=== PATIENT | female | born 1950 | race Caucasian/White ===

== ENCOUNTER 2020-01-03 10:17 | Outpatient (REF) | payer MEDICARE, OTHER, SELFPAY ==
--- NOTE | 2020-01-03 10:26 | MM_ITS ---
EXAMINATION: BONE DENSITOMETRY CLINICAL INDICATION: Age-related osteoporosis without current pathological fracture. COMPARISON: Previous BD dated 12/28/2017 and baseline BD dated 10/14/2007. TECHNIQUE: Using a [employer] DXA System (software version: 13.1) manufactured by [employer], dual-energy x-ray absorptiometry was performed of the lumbar spine and left hip. The images are of good technical quality. Summary results are attached. FINDINGS: AP SPINE L1-L3 (excluding L4): The data of L1-L4 has been changed to exclude the L4 vertebral body, because degenerative changes at this level may cause overestimation of lumbar spine density. Current: BMD 0.714 g/cm2, Z-score -2.4, T-score -3.8, osteoporosis, 0.4% decrease from previous, 3.6% decrease from baseline (<5% change is not significant). Prior: BMD 0.717 g/cm2. Baseline: BMD 0.741 g/cm2. LEFT FEMUR, NECK: Current: BMD 0.768 g/cm2, Z-score -0.3, T-score -1.9, osteopenia. Prior: BMD 0.790 g/cm2. Baseline: BMD 0.817 g/cm2. LEFT FEMUR, TOTAL: Current: BMD 0.791 g/cm2, Z-score -0.3, T-score -1.7, osteopenia, 5.0% decrease from previous, 7.2% decrease from baseline (<5% change is not significant). Prior: BMD 0.833 g/cm2. Baseline: BMD 0.852 g/cm2. IDENTIFIED RISK FACTORS: History of adult fracture. Osteoporosis. Current smoker. Secondary osteoporosis (early menopause). HISTORY OF FRACTURE: Wrist. No insufficiency fracture reported. MEDICATIONS: Calcium supplement and/or multivitamin. Vitamin D. MM/XR DEXA axial skeleton IMPRESSION: 1. DIAGNOSIS: Osteoporosis based on the lowest T-score value of -3.8 in the lumbar spine applying World Health Organization criteria. 2. 10-YEAR FRACTURE RISK PREDICTION, FRAX: Major osteoporotic fracture (clinical spine, forearm, hip or shoulder) 19.7%. Hip fracture 6.1%. 3. Treatment Recommendations: NOF guidelines recommend consideration for treatment in postmenopausal women and men age 50 and older presenting with the following: -A hip or vertebral (clinical or morphometric) fracture. -T-score less than or equal to -2.5 at the femoral neck or spine after appropriate evaluation to exclude secondary causes. -Low bone mass at the hip or spine and a 10-year fracture probability by FRAX of greater than or equal to 3% for hip fracture or greater than or equal to 20% for major osteoporotic fracture based on the [place] adapted WHO algorithm. 4. Other Recommendations: All treatment decisions require clinical judgment and consideration of individual patient factors, including patient preferences, comorbidities, previous drug use, risk factors not captured in the FRAX model (e.g. frailty, falls, vitamin D deficiency, increased bone turnover, interval significant decline in bone density) and possible under or overestimation of fracture risk by FRAX. Additional medical evaluation for secondary cause of low bone mineral density may be appropriate. FUTURE SCAN RECOMMENDATION: People with diagnosed cases of osteoporosis or at high risk for fracture should have regular bone mineral density tests. For patients eligible for Medicare, routine testing is allowed once every 2 years. The testing frequency can be increased to one year for patients who have rapidly progressing disease, those who are receiving or discontinuing medical therapy to restore bone mass, or have additional risk factors.
== END 2020-01-03 10:18 | disposition home or self-care (01) ==
LOC: HO.MAMMO 10:17
PROVIDERS: PCP Nurse Practitioner Family; Visit Provider Nurse Practitioner Family
DX: M81.0 Age-related osteoporosis without current pathological fracture (principal)
CPT/HCPCS: 77080

== ENCOUNTER 2020-02-13 09:37 | Outpatient (REF) | payer MEDICARE, OTHER, SELFPAY ==
[2020-02-13 11:23] LABS: Hemoglobin 14.8 g/dl (12.0-16.0); Mean Corpuscular HGB Conc 32.2 g/dl (31.0-35.0); Mean Corpuscular Hemoglobin 31.7 pg (27.0-33.0); Mean Corpuscular Volume 98.5 fL (80-98); Mean Platelet Volume 9.4 fL (9.4-12.3); Platelet Count 338 X10*3/uL (160-400); Red Blood Count 4.67 X10*6/uL (4.20-5.50); Red Cell Distribution Width 12.9 % (11.0-16.0)
[2020-02-13 11:42] LABS: Alanine Aminotransferase < 6 U/L (0-31); Albumin Level 4.2 g/dL (3.5-5.0); Alkaline Phosphatase 74 U/L (39-117); Anion Gap 13 (12-20); Aspartate Amino Transferase 19 U/L (5-31); Bilirubin Total 0.6 mg/dL (0.0-1.0); Blood Urea Nitrogen 14 mg/dL (9-16); Calcium 9.2 mg/dL (8.4-10.2); Carbon Dioxide 27 mmol/L (22-29); Chloride 105 mmol/L (96-108); Cholesterol 217 mg/dL; Estimated Glomerular Filt Rate > 60; Glucose Fasting 78 mg/dL (60-99); HDL Cholesterol 54 mg/dL; LDL Cholesterol Calculated 141 mg/dl; Potassium 4.6 mmol/l (3.3-5.1); Sodium 140 mmol/L (135-145); Total Protein 7.1 g/dL (6.5-8.0); Triglycerides 112 mg/dL
[2020-02-13 11:54] LABS: Vitamin D 25-OH Total 33.2 ng/mL (>30)
[2020-02-14 19:48] LABS: Calcium, 24 Hr Urine 153 mg/24 h; Calcium/Creatinine Ratio 151 mg/g creat (30-275); Creatinine 24Hr Urine 1.01 g/24 h (0.50-2.15)
== END 2020-02-13 09:38 | disposition home or self-care (01) ==
LOC: HO.HMGCLDS 09:37
PROVIDERS: PCP Nurse Practitioner Family; Visit Provider Nurse Practitioner Family
DX: E78.2 Mixed hyperlipidemia (principal); M81.0 Age-related osteoporosis without current pathological fracture; F41.9 Anxiety disorder, unspecified; E03.9 Hypothyroidism, unspecified
CPT/HCPCS: 36415; 80053; 80061; 82306; 82340; 84443; 85027

== ENCOUNTER 2020-02-21 10:27 | Outpatient (REF) | payer MEDICARE, OTHER, SELFPAY ==
--- NOTE | 2020-02-21 10:31 | MM_ITS ---
EXAMINATION: MM SCREENING DIGITAL BREAST TOMOSYNTHESIS, BILATERAL CLINICAL INFORMATION: Screening. Asymptomatic. The lifetime risk of breast cancer based on the Tyrer-Cuzick Model is 2.2%. COMPARISON: Mammography: February 15, 2019 and studies dating back to December 03, 2011 TECHNIQUE: Digital breast tomosynthesis is performed in both the craniocaudal and mediolateral oblique views along with computer-aided detection (CAD). Synthesized 2D images are generated from the tomosynthesis. Left exaggerated craniocaudal view also performed. FINDINGS: The breasts are almost entirely fatty (ACR BI-RADS breast composition Category a). There are no significant masses, abnormal calcifications, or other abnormalities. MM/MM tomosynthesis screening BI IMPRESSION: There are no significant changes from prior study. ASSESSMENT: BI-RADS 1: Negative RECOMMENDATION: Routine annual mammography screening. This patient's information was entered into a reminder system with a target due date for their next mammogram.
== END 2020-02-21 10:28 | disposition home or self-care (01) ==
LOC: HO.MAMMO 10:27
PROVIDERS: PCP Nurse Practitioner Family; Visit Provider Nurse Practitioner Family
DX: Z12.31 Encounter for screening mammogram for malignant neoplasm of breast (principal)
CPT/HCPCS: 77063; 77067

== ENCOUNTER 2021-02-24 10:16 | Outpatient (REF) | payer MEDICARE, OTHER, SELFPAY ==
--- NOTE | ~2021-02-24 | MM_ITS ---
EXAMINATION: MM SCREENING DIGITAL BREAST TOMOSYNTHESIS, BILATERAL CLINICAL INFORMATION: Screening. Asymptomatic. The lifetime risk of breast cancer based on the Tyrer-Cuzick Model is 2%. COMPARISON: Mammography: 02/21/2020, 02/15/2019, 02/10/2018 TECHNIQUE: Digital breast tomosynthesis is performed in both the craniocaudal and mediolateral oblique views along with computer-aided detection (CAD). Synthesized 2D images are generated from the tomosynthesis. FINDINGS: The breasts are almost entirely fatty (ACR BI-RADS breast composition Category a). Background stromal and fibroglandular densities are stable. There is intramammary node again seen posterior upper outer left breast. No developing density or architectural abnormality. No abnormal calcifications. No significant changes. MM/MM tomosynthesis screening BI IMPRESSION: No mammographic evidence of malignancy. ASSESSMENT: BI-RADS 2: Benign RECOMMENDATION: Routine annual mammography screening. This patient's information was entered into a reminder system with a target due date for their next mammogram.
== END 2021-02-24 10:17 | disposition home or self-care (01) ==
LOC: HO.MAMMO 10:16
PROVIDERS: Visit Provider Nurse Practitioner Family
DX: Z12.31 Encounter for screening mammogram for malignant neoplasm of breast (principal)
CPT/HCPCS: 77063; 77067

== ENCOUNTER 2022-03-03 12:41 | Outpatient (REF) | payer MEDICARE, OTHER, SELFPAY ==
--- NOTE | ~2022-03-03 | MM_ITS ---
EXAMINATION: BONE DENSITOMETRY CLINICAL INDICATION: Osteoporosis. COMPARISON: Previous BD dated 01/03/2012 and baseline BD dated 10/14/2007. TECHNIQUE: Using a [employer] DXA System (software version: 13.1) manufactured by [email or web address], dual-energy x-ray absorptiometry was performed of the lumbar spine and left hip. The images are of good technical quality. Summary results are attached. FINDINGS: AP SPINE L1-L3 (excluding L4): The data of L1-L4 has been changed to exclude the L4 vertebral body, because degenerative changes at this level may cause overestimation of lumbar spine density. Current: BMD 0.694 g/cm2, Z-score -2.5, T-score -4.0, osteoporosis, 2.8% increase from previous, 6.3% decrease from baseline (<5% change is not significant). Prior: BMD 0.714 g/cm2. Baseline: BMD 0.741 g/cm2. LEFT FEMUR, NECK: Current: BMD 0.740 g/cm2, Z-score -0.4, T-score -2.1, osteopenia. Prior: BMD 0.768 g/cm2. Baseline: BMD 0.817 g/cm2. LEFT FEMUR, TOTAL: Current: BMD 0.772 g/cm2, Z-score -0.4, T-score -1.9, osteopenia, 2.4% decrease from previous, 9.4% decrease from baseline (<5% change is not significant). Prior: BMD 0.791 g/cm2. Baseline: BMD 0.852 g/cm2. IDENTIFIED RISK FACTORS: Early menopause, height loss, history of fracture (adult), osteoporosis, secondary osteoporosis, tobacco use (current smoker). HISTORY OF FRACTURE: Wrist, elbow. MEDICATIONS: Vitamin D. MM/XR DEXA axial skeleton IMPRESSION: 1. DIAGNOSIS: Osteoporosis based on the lowest T-score value of -4.0 in the lumbar spine applying World Health Organization criteria. 2. 10-YEAR FRACTURE RISK PREDICTION, FRAX: According to the guidelines, FRAX calculation should only be performed on patients in the osteopenia bone density category. Therefore, FRAX was not performed on this patient. 3. Treatment Recommendations: NOF guidelines recommend consideration for treatment in postmenopausal women and men age 50 and older presenting with the following: -A hip or vertebral (clinical or morphometric) fracture. -T-score less than or equal to -2.5 at the femoral neck or spine after appropriate evaluation to exclude secondary causes. -Low bone mass at the hip or spine and a 10-year fracture probability by FRAX of greater than or equal to 3% for hip fracture or greater than or equal to 20% for major osteoporotic fracture based on the [place] adapted WHO algorithm. 4. Other Recommendations: All treatment decisions require clinical judgment and consideration of individual patient factors, including patient preferences, comorbidities, previous drug use, risk factors not captured in the FRAX model (e.g. frailty, falls, vitamin D deficiency, increased bone turnover, interval significant decline in bone density) and possible under or overestimation of fracture risk by FRAX. Additional medical evaluation for secondary cause of low bone mineral density may be appropriate. FUTURE SCAN RECOMMENDATION: People with diagnosed cases of osteoporosis or at high risk for fracture should have regular bone mineral density tests. For patients eligible for Medicare, routine testing is allowed once every 2 years. The testing frequency can be increased to one year for patients who have rapidly progressing disease, those who are receiving or discontinuing medical therapy to restore bone mass, or have additional risk factors.
--- NOTE | ~2022-03-03 | MM_ITS ---
EXAMINATION: MM SCREENING DIGITAL BREAST TOMOSYNTHESIS, BILATERAL CLINICAL INFORMATION: Screening. Asymptomatic. The lifetime risk of breast cancer based on the Tyrer-Cuzick Model is 2%. COMPARISON: Mammography: 02/24/2021, 02/18/2020, 02/15/2019 TECHNIQUE: Digital breast tomosynthesis is performed in both the craniocaudal and mediolateral oblique views along with computer-aided detection (CAD). Synthesized 2D images are generated from the tomosynthesis. FINDINGS: The breasts are almost entirely fatty (ACR BI-RADS breast composition Category a). There are no significant masses, abnormal calcifications, or other abnormalities. Background stromal and fibroglandular densities are similar to prior studies. There is incidental intramammary node again seen posterior upper outer left breast. The skin contours are smooth. No significant changes. MM/MM tomosynthesis screening BI IMPRESSION: No mammographic evidence of malignancy. ASSESSMENT: BI-RADS 2: Benign RECOMMENDATION: Routine annual mammography screening. This patient's information was entered into a reminder system with a target due date for their next mammogram.
== END 2022-03-03 12:42 | disposition home or self-care (01) ==
LOC: HO.MAMMO 12:41
PROVIDERS: PCP Nurse Practitioner Family; Visit Provider Nurse Practitioner Family
DX: Z12.31 Encounter for screening mammogram for malignant neoplasm of breast (principal); Z13.820 Encounter for screening for osteoporosis; Z78.0 Asymptomatic menopausal state; M81.0 Age-related osteoporosis without current pathological fracture
CPT/HCPCS: 77063; 77067; 77080

== ENCOUNTER 2023-03-12 14:54 | Outpatient (REF) | payer MEDICARE, OTHER, SELFPAY | END 2023-03-12 14:55 | disposition home or self-care (01) | LOC: HO.MAMMO 14:54 | PROVIDERS: PCP Nurse Practitioner Family; Visit Provider Nurse Practitioner Family | DX: Z12.31 Encounter for screening mammogram for malignant neoplasm of breast (principal) | CPT/HCPCS: 77063; 77067 ==

== ENCOUNTER → 2023-03-12 15:15 | Outpatient (BNV) | payer MEDICARE, OTHER, SELFPAY | PROVIDERS: PCP Nurse Practitioner Family; Visit Provider Radiology Diagnostic Radiology | DX: Z12.31 Encounter for screening mammogram for malignant neoplasm of breast (principal) | CPT/HCPCS: 77063; 77067 ==

== ENCOUNTER 2024-03-31 14:09 | Outpatient (REF) | payer MEDICARE, OTHER, SELFPAY ==
--- NOTE | ~2024-03-31 | MM_ITS ---
EXAMINATION: DXA BONE DENSITY AXIAL HISTORY: Estrogen deficiency TECHNIQUE: Breather Dual energy absorptiometry (DEXA) of the lumbar spine, total left hip, and femoral neck was performed. COMPARISON: Comparison is made with the prior examination dated 03/03/2022. FINDINGS: The bone mineral density of the lumbar spine is 0.742 with a T-score of -3.6, and a Z-score of -2.1. This represents a BMD change of 10.1% compared to the prior exam. This is statistically significant. The bone mineral density of the left total hip is 0.772 with a T-score of -1.9, and a Z-score of -0.3. This represents BMD change of 0.0% compared to the prior exam. This is not statistically significant. The bone mineral density of the left femoral neck is 0.762 with a T-score of -2.0, and a Z-score of -0.2. This represents BMD change of 3.0% compared to the prior exam. FRACTURE RISK: The FRAX index suggests a ten year probability of major osteoporotic fracture of 20.5%, and of hip fracture 5.1%. MM/XR DEXA axial skeleton IMPRESSION: Based on bone mineral density, and according to World Health Organization (WHO) criteria, the diagnosis is consistent with osteoporosis. All bone density values are in grams per centimeter squared (g/cm2). Statistically, 68% of repeat scans fall within 1 SD (+/- 0.010 g/cm2 for AP spine L1-L4) and 1 SD (+/- 0.012 g/cm2 for femur total) FRAX is a trademark of the [employer], a World Health Organization (WHO) Collaborating Center. Electronically signed by: Luis Hussein MD 04/03/2024 12:54 PM [facility]
--- OUTSIDE RECORDS SUMMARY | 2024-03-31 14:11 | XMS_ITS | Data Portability ---
Author Organization [place] [facility], [facility], [facility] Address [address] [place] [id number] Care Team Providers Care Prosthodontist/Educator Name Role Phone AVERY GHOTRA Referring Provider Assessment No assessment recorded. Plan of Treatment Reminders Order Date Submit Date Provider Last Modified By Organization Details Last Modified Time Details Appointments None recorded. Lab TSH + free T4, serum 2017 018 [facility], [address] [place] [address] [place], [address], 8 10:14:25 Referral None recorded. Procedures None recorded. Surgeries None recorded. Imaging x-ray, lumbar spine - Radiologis t protocol unless specified otherwise 2016 017 [facility], [facility], All Locations, [place], [address], 7 11:50:26 MRI, lumbar spine 2016 017 [facility], [facility], All Locations, [place], [address], 7 10:22:59 Medication Orders acetaminop hen 300 mg-codeine 30 mg tablet 2016 017 [id number], [address], [place], [place], [id number], 9 14:32:27 Medrol (Marco A) 4 mg tablets in a dose pack 2016 017 [facility] #[id number], [address], [place], [id number], 8 16:01:42 baclofen 20 mg tablet 2016 017 [facility] #06131, [address], [place], [id number], 8 16:03:21 baclofen 20 mg tablet 2016 017 [facility] #56309, [address], [place], [id number], 8 16:03:21 meloxicam 15 mg tablet 2016 017 [facility] #[id number], [address], [place], [id number], 7 11:39:44 acetaminop hen 300 mg-codeine 30 mg tablet 2016 [facility]17 [facility], [address], [place], [id number], 9 14:32:27 Zithromax Z-Marco A 250 mg tablet 2018 019 [facility] #69783, [address], [place], [id number], 9 14:48:33 Patient TargetsNo targets recorded. Patient Instructions Encounter Date Encounter Id Patient Instructions Last Modified By Organization Details Last Modified Time 05/03/2016 [id number] back stretches: exercises epapan Not available 05/03/2016 15:00:04 please follow-up with your PCP if not better Do not drive when taking pain medications Please monitor for constipation epapan Not available 05/03/2016 15:44:33 05/12/2016 [id number] low back pain: exercises epapan Not available 05/12/2016 16:18:46 back stretches: exercises epapan Not available 05/12/2016 16:18:46 06/01/2017 [id number] Labs ordered. Results to be CC'd to PCP in [facility]. Not available 06/01/2017 18:22:35 Patient understa nds instructions and will seek medical attention if symptoms worsen as directed. Not available 06/01/2017 18:22:39 04/02/2018 [id number] Use Mucinex according to directions on label for congestion and cough You should get plenty of rest to recover from your symptoms as quickly as possible. Drink as much clear fluids as possible to prevent dehydration. Examples include water, sport drinks, caffeine-free soft drinks (flattened), and broth. If you have a fever, take your temperature every 2-4 hours while ill. If the temperature is greater than 100 degrees orally, use Acetaminophen (Tylenol or Panadol) or Ibuprofen (Advil or Motrin) to control the fever. Coughing can be reduced by: 1.) Drinking plenty of liquids (loosening chest congestion). 2.) Periodically inhaling water vapors from a steamy shower or cool-mist humidifier. 3.) Drinking warm liquids (like herbal teas) and sucking on lozenges (to soothe that tickle in your throat that causes you to cough). 4.) Using drkd-nwk-grztppg medications that contain either an expectorant (guiafenesin) or cough suppressant (dextramaphorpham) depending on your symptoms. To soothe the pain from a sore throat: 1.) Take an cvhb-ltg-vuxdele pain reliever like Acetaminophen or Ibuprofen, gargle with salt-water (mix 2 teaspoons salt in 1pint water), use a throat spray (Cepacol), or suck on throat lozenges. For nasal congestion: 1.) Use Saline nose spray (Tuttle drops) in each nostril every 3-4 hours to loosen thick mucus or take an over-the- counter decongestant like pseudoephedrine (if you have high blood pressure, you should avoid over-the- counter decongestants). When you take any ryhb-lni-sykgdid medications, carefully follow the instructions on the package for dosage and other safety information. Rx as prescribed. Follow up if shortness of breath or fever/chills. Not available 04/02/2018 15:00:16 Patient understa nds instructions and will seek medical attention if symptoms worsen as directed. Not available 04/02/2018 15:00:11 Reason for Referral None Reported. Results Created Date Observation Date Name Description Value Unit Range Abnormal Flag Note LastModifiedBy Organization Detail LastModifiedTime 06/02/19 18 06/01/2017 T4, free, serum T4, free 1.35 NG/dL 0.82-1 .74 Not Available [facility] [address] [place], [address], 06/02/2017 10:14:25 06/02/19 18 06/01/2017 TSH, serum or plasm a TSH 1.1600 mIU/m L 0.5000 -5.000 0 Patie nt is not fasti ng Not Available [facility] [address] [place], [address], 06/02/2017 10:14:26 06/02/19 18 06/01/2017 venip unctu re results Compl ete Patie nt is not fasti ng Not Available [facility] [address] [place], [address], 06/01/2017 16:36:57 05/14/19 17 05/12/2016 L spine 5V LUMBAR SPINE: FIVE VIEWS Findin gs: Views of the lumbar spine are evalua mat. There are degene rative change s and osteop enia. Disc space is narrow ed at L4-5 and L5-S1. There is no fractu re. No lytic lesion . No cortic al destru ction. No soft tissue mass. No perios teal reacti on. Impres prince: 1. L4-5 and L5-S1 degene rative change s, nothin g acute. Thank you for this referr al. Electr onical ly signed Readin g Radiol ogist: Marcus Cuellar MD [facility] [address] [facility], [place], [address], 05/13/2016 18:26:07 05/23/19 17 05/21/2016 L spine wo MRI OF LUMBAR SPINE WITHOU T CONTRA ST Techni que: Multip le pulse sequen corky were perfor med on the MRI scanne r of the lumbar spine. Pulse sequen corky were perfor med in the axial and sagitt al planes using T1 weight ed and T2 weight ed imagin g. This exam was perfor med withou t a contra st agent. This is perfor med on a GE high field streng MRI scanne r. Findin gs: The study is perfor med. At the L5-S1 level, there is sublig amento us protru prince of the disc effaci ng the thecal sac withou t free or seques tered fragme nt. The exitin g neural forami na are minima lly encroa ched, but patent . At the L4-5 level, there is broad- based protru prince of the disc imping ing the thecal sac, again withou t free or seques tered fragme nt. The exitin g neural forami na are patent . At the L3-4 level, there is trace bulge. At L2-3, L1-2 and T12-L1 , there is no bulge, protru prince or canal stenos is. No parasp inal mass. There is very slight scolio sis convex to the right upper and left lower lumbar . Impres prince: 1. There is broad- based protru prince sublig amento us at the L4-5 level imping ing the thecal sac withou t free or seques tered fragme nt. The exitin g neural forami na are patent . 2. At the L5-S1 level, there is merchandise director ior direct ed spur/d isc imping ing the thecal sac withou t domina nt centra l canal stenos is. The exitin g neural forami na are patent . 3. There is trace centra l bulge at L3-4. Thank you for this referr al. Electr onical ly signed Readin g Radiol ogist: Marcus Cuellar MD [facility] [address] [place], [address], 05/23/2016 10:45:34 Result Notes None recorded. Procedures Surgical History None recorded. Imaging Results Imaging Date Name Status LastModified by Organiz ation Details LastModified Time 05/12/2016 L spine 5V completed [facility] [address] [place], [address], 05/13/2016 18:26:07 05/21/2016 L spine wo completed [facility] [address] [place], [address], 05/23/2016 10:45:34 Procedure Notes None recorded. Medical Equipment None Reported. Allergies Allergen ID Allergen Name Allergen Category Reaction Reaction Severity Criticality Documentation Date Start Date Code Code System Note Provider Name and Address Organization Details Recorded Time [id number] amoxicill in medicatio n Not available Not available Not available 06/03/2015 723 RxNorm NOLAN [place] - [facility], [facility] 6 12:39:25 Medications Name Sig Start Date Stop Date Status Note LastModified by Organization Details LastModified Time fluoxetine 40 mg capsule active Not Available Not Available Not Available desonide 0.05 % topical cream 06/01 completed Not Available Not Available Not Available azithromyci n 250 mg tablet TAKE 2 TABLETS (500 MG) BY ORAL ROUTE ONCE DAILY FOR 1 DAY THEN 1 TABLET (250 MG) BY ORAL ROUTE ONCE DAILY FOR 4 DAYS active Not Available Not Available No t Available nystatin 100,000 unit/gram topical ointment 06/01 completed Not Available Not Available Not Available tizanidine 4 mg tablet 05/03 completed Not Available Not Available Not Available sulfamethox azole 400 mg-trimetho prim 80 mg tablet TK 1 T PO BID active Not Available Not Available No t Available valacyclovi r 1 gram tablet TK 1 T PO QD FOR SUPPRESSI VE THERAPY FOR OUTBREAKS 04/02 completed Not Available Not Available Not Available clarithromy hien 500 mg tablet 05/03 completed Not Available Not Available Not Available tretinoin 0.025 % topical cream APPLY TO FACE EVERY FEW NIGHTS WORKING UP TO EVERY OTHER NIGHT TOLERATED active Not Available Not Available No t Available fluconazole 200 mg tablet 06/01 completed Not Available Not Available Not Available meloxicam 15 mg tablet TAKE 1 TABLET BY MOUTH EVERY DAY active Not Available Not Available No t Available clonazepam 1 mg tablet TK 1 T PO BID active Not Available Not Available No t Available acetaminoph en 300 mg-codeine 30 mg tablet TK 1 T PO TID PRN P 04/02 completed Not Available Not Available Not Available valacyclovi r 500 mg tablet TK 1 T PO D active Not Available Not Available No t Available baclofen 20 mg tablet TK 1/2 TO 1 T PO TID PRF SPASMS 06/01 completed Not Available Not Available Not Available levothyroxi ne 75 mcg tablet TK 1 T PO QD active Not Available Not Available No t Available prednisone 10 mg tablets in a dose pack TK UTD FOR 6 DAYS 05/03 completed Not Available Not Available Not Available levothyroxi ne 100 mcg tablet TK 1 T PO QAM ON AN EMPTY STOMACH 05/03 completed Not Available Not Available Not Available levothyroxi ne 88 mcg tablet TAKE 1 TABLET BY MOUTH EVERY MORNING ON AN EMPTY STOMACH 05/03 completed Not Available Not Available Not Available simvastatin 20 mg tablet TK 1 T PO QD active Not Available Not Available No t Available tacrolimus 0.1 % topical ointment 05/03 completed Not Available Not Available Not Available neomycin-po lymyxin-dex ameth 3.5 mg/mL-10,00 0 unit/mL-0.1 % eye drops 06/01 completed Not Available Not Available Not Available metronidazo le 0.75 % topical cream 06/01 completed Not Available Not Available Not Available gabapentin 300 mg capsule active Not Available Not Available Not Available hydroxyzine HCl 25 mg tablet active Not Available Not Available Not Available mupirocin 2 % topical ointment active Not Available Not Available Not Available clobetasol 0.05 % topical ointment 04/02 completed Not Available Not Available Not Available ibuprofen 600 mg tablet Take 1 tablet twice a day by oral route as needed. 06/01 completed Not Available Not Available Not Available methylpredn isolone 4 mg tablets in a dose pack Take by oral route. take as directed 06/01 completed Not Available Not Available Not Available ketoconazol e 2 % topical cream 04/02 completed Not Available Not Available Not Available fluoxetine 20 mg capsule TK 1 C PO QAM active Not Available Not Available No t Available fluticasone propionate 50 mcg/actuati on nasal spray,suspe nsion 04/02 completed Not Available Not Available Not Available clindamycin 1 % lotion 06/01 completed Not Available Not Available Not Available ibandronate 150 mg tablet TK 1 T PO ONCE A MONTH 05/03 completed Not Available Not Available Not Available levothyroxi ne 06/01 completed Not Available Not Available Not Available ibandronate 05/03 completed Not Available Not Available Not Available Prevnar 13 (PF) 0.5 mL intramuscul ar syringe TO BE ADMINISTE RED BY PHARMACIS T FOR IMMUNIZAT ION 06/01 completed Not Available Not Available Not Available Fluvirin 6099-5071 45 mcg (15 mcg x 3)/0.5 mL intramuscul ar suspension ADM 0.5ML IM UTD 05/03 completed Not Available Not Available Not Available Fluzone High-Dose 6426-3863 (PF) 180 mcg/0.5 mL intramuscul ar syringe TO BE ADMINISTE RED BY PHARMACIS T FOR IMMUNIZAT ION 06/01 completed Not Available Not Available Not Available Fluzone High-Dose (PF) 180 mcg/0.5 mL intramuscul ar syringe ADM 0.5ML IM UTD active Not Available Not Available No t Available Vitals Date Recorded Body height Provider Name an d Address Organization Details Last Updated DateTime 05/03/2016 165.1 cm [facility] [employer] [facility] 05/03/2016 14:16:12 Date Recorded Body weight Body mass index (BMI) Provider Name and Address Organization Details Last Updated DateTime 05/03/2016 57052.34 g 26.6 kg/m2 [place] [employer] [employer] [facility] 05/03/2016 14:17:42 Date Recorded Body temperature Provider Name a nd Address Organization Details Last Updated DateTime 05/03/2016 97.9 [degF] [facility], [facility] 05/03/2016 14:22:29 Date Recorded Heart rate Provider Name an d Address Organization Details Last Updated DateTime 05/03/2016 73 /min [facility], [facility] 05/03/2016 14:22:34 Date Recorded Oxygen saturation Oxygen saturation in Arterial blood by Pulse oximetry Provider Name and Address Organization Details Last Updated DateTime 05/03/2016 97 % 97 % Bárbara [facility], [facility] 05/03/2016 14:22:37 Date Recorded Body height Provider Name an d Address Organization Details Last Updated DateTime 05/12/2016 165.1 cm [facility] 05/12/2016 14:45:11 Date Recorded Body weight Body mass index (BMI) Provider Name and Address Organization Details Last Updated DateTime 05/12/2016 93061.19 g 26.5 kg/m2 [facility] 05/12/2016 14:46:33 Date Recorded Body temperature Provider Name a nd Address Organization Details Last Updated DateTime 05/12/2016 98.1 [degF] Elen [facility], [facility] 05/12/2016 14:47:53 Date Recorded Heart rate Provider Name an d Address Organization Details Last Updated DateTime 05/12/2016 76 /min Elen [facility], [facility] 05/12/2016 14:47:59 Date Recorded Respiratory rate Provider Name a nd Address Organization Details Last Updated DateTime 05/12/2016 18 /min Elen Sandeepoads [facility], [facility] 05/12/2016 14:48:03 Date Recorded Oxygen saturation Oxygen saturation in Arterial blood by Pulse oximetry Provider Name and Address Organization Details Last Updated DateTime 05/12/2016 96 % 96 % Elen [facility], [facility] 05/12/2016 14:48:10 Date Recorded Body height Provider Name an d Address Organization Details Last Updated DateTime 05/27/2016 165.1 cm Elen [facility], [facility] 05/27/2016 11:10:55 Date Recorded Body weight Provider Name an d Address Organization Details Last Updated DateTime 05/27/2016 18995.19 g [facility], [facility] 05/27/2016 11:13:03 Date Recorded Body mass index (BMI) Provider Name and Address Organization Details Last Updated DateTime 05/27/2016 26.5 kg/m2 Elen [place] [facility], [facility] 05/27/2016 11:13:04 Date Recorded Body temperature Provider Name a nd Address Organization Details Last Updated DateTime 05/27/2016 98.7 [degF] [facility], [facility] 05/27/2016 11:16:47 Date Recorded Heart rate Provider Name an d Address Organization Details Last Updated DateTime 05/27/2016 74 /min [facility] [place] [facility], [facility] 05/27/2016 11:17:05 Date Recorded Respiratory rate Provider Name a nd Address Organization Details Last Updated DateTime 05/27/2016 18 /min Elen Sandeepoads [place] [facility], [facility] 05/27/2016 11:17:11 Date Recorded Oxygen saturation Oxygen saturation in Arterial blood by Pulse oximetry Provider Name and Address Organization Details Last Updated DateTime 05/27/2016 97 % 97 % [facility], [facility] 05/27/2016 11:17:17 Date Recorded Body temperature Provider Name a nd Address Organization Details Last Updated DateTime 06/01/2017 98.5 [degF] Virgen Juanmilenaach [place] [facility], [facility] 06/01/2017 15:58:54 Date Recorded Heart rate Provider Name an d Address Organization Details Last Updated DateTime 06/01/2017 79 /min Virgen uJanlmach [place] [facility], [facility] 06/01/2017 15:58:59 Date Recorded Respiratory rate Provider Name a nd Address Organization Details Last Updated DateTime 06/01/2017 16 /min Virgen [place] [facility], [facility] 06/01/2017 15:59:00 Date Recorded Oxygen saturation Oxygen saturation in Arterial blood by Pulse oximetry Provider Name and Address Organization Details Last Updated DateTime 06/01/2017 97 % 97 % Virgen [place] [facility] [place] [facility], [facility] 06/01/2017 15:59:07 Date Recorded Body weight Provider Name an d Address Organization Details Last Updated DateTime 06/01/[address] [facility], [facility] 06/01/2017 15:59:12 Date Recorded Body mass index (BMI) Body height Provider Name and Address Organization Details Last Updated DateTime 06/01/2017 31.8 kg/m2 152.4 cm [facility], [facility] 06/01/2017 15:59:33 Date Recorded Body height Provider Name an d Address Organization Details Last Updated DateTime 04/02/2018 152.4 cm [facility], [facility] 04/02/2018 14:32:01 Date Recorded Body mass index (BMI) Body weight Provider Name and Address Organization Details Last Updated DateTime 04/02/2018 32 kg/m2 65055.15 g [facility], [facility] 04/02/2018 14:32:06 Date Recorded Body temperature Provider Name a nd Address Organization Details Last Updated DateTime 04/02/2018 98.6 [degF] [facility], [facility] 04/02/2018 14:34:51 Date Recorded Heart rate Provider Name an d Address Organization Details Last Updated DateTime 04/02/2018 89 /min [facility], [facility] 04/02/2018 14:34:55 Date Recorded Oxygen saturation Oxygen saturation in Arterial blood by Pulse oximetry Provider Name and Address Organization Details Last Updated DateTime 04/02/2018 95 % 95 % [facility], [facility] 04/02/2018 14:34:57 Date Recorded Systolic blood pressure Diastolic blood pressure Provider Name and Address Organization Details Last Updated DateTime 05/03/2016 114 mm[Hg] 76 mm[Hg] Bárbara [facility], [facility] 05/03/2016 14:22:27 Date Recorded Systolic blood pressure Diastolic blood pressure Provider Name and Address Organization Details Last Updated DateTime 05/12/2016 110 mm[Hg] 60 mm[Hg] [facility], [facility] 05/12/2016 14:47:21 Date Recorded Systolic blood pressure Diastolic blood pressure Provider Name and Address Organization Details Last Updated DateTime 05/27/2016 118 mm[Hg] 60 mm[Hg] Elen Fields [facility], [facility] 05/27/2016 11:16:42 Date Recorded Systolic blood pressure Diastolic blood pressure Provider Name and Address Organization Details Last Updated DateTime 06/01/2017 103 mm[Hg] 66 mm[Hg] Virgen Chu [facility], [facility] 06/01/2017 15:58:47 Date Recorded Systolic blood pressure Diastolic blood pressure Provider Name and Address Organization Details Last Updated DateTime 04/02/2018 144 mm[Hg] 68 mm[Hg] Nayeli Mel[facility]dez [facility], [facility] 04/02/2018 14:34:48 Social History Question Answer Notes LastModified by Organizat ion Details LastModified Time Tobacco Smoking Status [facility] 12:40:45 Which Illicit Or Recreational Drugs Have You Used? None Reported Information not available 06/03/2015 What Is Your Occupation? Retired Information not available 06/03/2015 Alcohol Use No Information n ot available 06/03/2015 What Was The Date Of Your Most Recent Tobacco Screening? 04/02/2018 Information not available 09/23/2018 Sex: Unknown Functional Status None recorded. Mental Status None recorded. Family History Relationship Description Onset Age of this Age Resolved Age Notes LastModified by Organization Details LastModified Time Mother cgooding Not available 0 06/17/2015 12:29:07 Medical History Condition Response Cancer (location) N Other N Gout N Kidney Stones N Measles/Mumps N Sexually Transmitted Disease N Depression N Prostate Problems N Parkinson's N Paralysis N Headaches/Migraines N Cardiac Pacemaker/defibrillator N Arthritis N Crohn's Disease N HIV/AIDS N Stroke/TIA N Kidney Disease N Gallbladder disease N High blood pressure N Alcohol Overuse N Blood Thinner Treatment N Nervous Breakdown N Blanco's Esophagus N Urinary Problems N Gastritis N Back pain N Rheumatic Fever N Bleeding Disorder N Osteopenia/Osteoporosis Y Asthma N Ostomies (location) N Seizures N Jaundice N Hepatitis N Cirrhosis N Chicken Pox N Allergies (other than meds) N Thyroid Disease Y Emphysema/COPD N Vascular Disease N Rash/Skin Condition N Amputation (location) N Nerve Damage / Neuropathy N Sleep disorder/Insomnia N Heart disease / Heart Attack N High Cholesterol Y Colon Problems N Serious Injuries N Memory Loss/Alzheimer's N Congestive heart failure N Falls N Hormone Replacement N Anemia N Colon Polyps N Hospitalizations (other than operations) N Diabetes N Cardiac Arrhythmias /irregular heart rat e N Anxiety/Stress N Vision Problems N Erectile / Sexual Dysfunction N Sleep Apnea N GERD/Ulcer N Gynecological HistoryNo gynecological history recorded. Obstetrics History GPAL:G 0 P 0 0 0 0 Immunizations Vaccine Type Date Status Note Provider Nam e and Address Organization Details Recorded Time pneumococcal, unspecified formulation 5 completed Klaudia [facility], [facility] 06/03/2015 12:39:25 Influenza, split virus, trivalent, preservative 5 [facility] 06/03/2015 12:39:25 zoster live 5 completed Klaudia Jun [facility], [facility] 06/03/2015 12:39:25 Past Encounters Encounter ID Performer Location Encounter Start Date Encounter Closed Date Diagnosis/Indication Diagnosis SNOMED-CT Code Diagnosis ICD10 Code Diagnosis Note [id number] Avery Ghotra MD [facility] [address] [place] [id number] 2 06/03/2015 11:55:26 06/03/2015 13:43:11 Open wound of knee [id number] S81.002A she is not sure about her tetanus status I've explained to her that a current tetanus shot not protect her against a recent injury We'll discuss this with her PCP in [facility] [id number] LUIS MANUEL [facility] [address] [place] [address] [id number] 2 06/17/2015 12:03:28 06/17/2015 15:07:39 Knee pain [id number] M25.562 wound healed likely small fluid in knee trial of prednisone declines xray @ this time going back [place] in few days- will follow up with PCP back home for further investigat ion if no improvemen t [id number] Avery Ghotra MD [facility] [address] [place] [address] [id number] 2 05/03/2016 13:46:14 05/03/2016 15:08:04 Backache [id number] M54.9 aed work up if not better [id number] Avery Ghotra MD [facility] [address] [place] [address] 05/12/2016 14:35:23 05/12/2016 16:30:19 Spasm of back muscles [id number] M62.830 her symptoms have been present for several months.At this point imaging is necessaryS he was reassured about the lumps she was feeling as there are most likely due to spasms [id number] Avery Ghotra MD [facility] [address] [place] [address] 05/27/2016 10:59:33 05/27/2016 11:50:06 Displacement of lumbar intervertebral disc without myelopathy [id number] M51.26 MRI was reviewedMe dications were reviewedSh e is responding to muscle relaxants and pain medication sShe is taking them judiciousl ySvero is going home and of [facility] with exercisesS he will arrange follow-up with a back specialist She will report to this office or emergency room should she develop numbness or weakness in her lower extremitie izzy has a position of her MRI disksX-ray s were copied and also for her [id number] MEENAKSHI Etienne [facility] [address] [place] [address] 06/01/2017 15:38:05 06/01/2017 16:29:05 Hypothyroidism [id number] E03.8 [id number] [facility] [address] [place] [address] 04/02/2018 13:40:40 04/02/2018 14:56:20 Acute maxillary sinusitis 51970876 J01.01 Health Concerns Section Related Observation LastModified by Organization Detai ls LastModified Time None Recorded Concern Status LastModified by Organization Details LastModified Time None Recorded Advance Directives Directive None Recorded Payers Encounter Date Sequence Insurance Name Policy Number Policy Franco Covered Member ID Franco Member ID Guarantor Name 05/03/2016 1 [place] Annabella M Himanshu [id number] Annabella M Himanshu 05/03/2016 2 [facility] (MEDICARE SUPPLEMENT) Annabella Huston Himanshu [id number] Annabella M Himanshu 05/12/2016 1 [place] Annabella M Himanshu [id number] Annabella M Himanshu 05/12/2016 2 [facility] (MEDICARE SUPPLEMENT) Annabella M Himanshu [id number] Annabella M Himanshu 05/27/2016 1 [place] Annabella M Himanshu [id number] Annabella M Himanshu 05/27/2016 2 [facility] (MEDICARE SUPPLEMENT) Annabella M Himanshu [id number] Annabella M Himanshu 06/01/2017 1 [place] Annabella M Himanshu [id number] Annabella M Himanshu 06/01/2017 2 [facility] (MEDICARE SUPPLEMENT) Annabella M Himanshu [id number] Annabella M Himanshu 04/02/2018 1 [place] Annabella M Himanshu [id number] 0 Annabella M Himanshu 04/02/2018 2 [facility] (MEDICARE SUPPLEMENT) Annabella M Himanshu [id number] Annabella M Himanshu Notes Date Note Type Note Provider Name and Address Organization Details Recorded Time 05/03/2016 text/html Back PainReporte d bypatient.Reason for visit:acute complaint Location:lumbar;pain radiates to leg(s)(rt) Severity:moderate Duration:constant Onset/Timing:abrupt Context:bending over; injury/overuse Alleviating Factors:nothing Aggravating Factors:movement/posit ioning Associated Symptoms:denies fever; denies weak limbs; denies numbness of the legs/feet; denies dysuria; denies tingling; denies incontinenceNotes:has been riding her bicycle Avery Ghotra MD [address] [facility] [address], [place], [address], [facility] - [facility], [facility] 05/03/2016 15:44:46 05/12/2016 text/html Back PainReporte d bypatient.Reason for visit:follow-up of acute complaint Location:lumbar;pain radiates to leg(s)(rt) Severity:moderate; better Duration:constant Onset/Timing:abrupt Context:bending over; injury/overuse Alleviating Factors:nothing Aggravating Factors:movement/posit ioning Associated Symptoms:denies fever; denies weak limbs; denies numbness of the legs/feet; denies dysuria; denies tingling; denies incontinenceNotes:she and her spouse has noticed lumps in her backThey move and she is concerned about blood clots Avery Ghotra MD [address], [place], [address], [employer] [facility] [facility] [place] [email or web address] 05/12/2016 17:29:58 05/27/2016 text/html Back PainReporte d bypatient.Reason for visit:follow-up of acute complaint Location:lumbar;pain radiates to leg(s)(rt) Severity:moderate; better Duration:intermittent Onset/Timing:abrupt;1 months ago Context:bending over; injury/overuse Alleviating Factors:nothing Aggravating Factors:movement/posit ioning Associated Symptoms:denies fever; denies weak limbs; denies numbness of the legs/feet; denies dysuria; denies tingling; denies incontinenceNotes:part ial relief with medicationsNo weakness or numbness of the lower extremities Avery Ghotra MD [address], [place], [address], [employer] [facility] [facility] [place] [email or web address] 05/27/2016 11:46:21 06/01/2017 text/html Wants thyroid ch ecked. Feels sluggish, gaining weight, skin feels dry, hair feels brittle. Denies palpitations or peripheral edema. Currently on levothyroxine 75 mcg. Last labs 1 year ago and were normal. MEENAKSHI Etienne [address], [place], [address], [employer] [facility] [place] [email or web address] 06/01/2017 18:22:55 04/02/2018 text/html SinusitisReporte d bypatient.Reason for visit:acute complaint Location:sinus pain Quality:aching;congest ed;throbbing Severity:moderate Duration:constant Onset/Timing:gradual; 1 weeks Alleviating factors:nothing gives relief Associated Symptoms:nasal discharge; no fever; no nausea or vomiting MEENAKSHI Etienne [address] [facility] [address], [place], [address], [facility] - [facility], [facility] 04/02/2018 15:00:24 OBGyn Episode No OBEpisode recorded.
== END 2024-03-31 14:10 | disposition home or self-care (01) ==
LOC: HO.MAMMO 14:09
PROVIDERS: Visit Provider Internal Medicine Endocrinology, Diabetes & Metabolism
DX: Z12.31 Encounter for screening mammogram for malignant neoplasm of breast (principal); M81.0 Age-related osteoporosis without current pathological fracture
CPT/HCPCS: 77063; 77067; 77080

== ENCOUNTER → 2024-03-31 14:30 | Outpatient (BNV) | payer MEDICARE, OTHER, SELFPAY | PROVIDERS: Visit Provider Radiology Diagnostic Radiology | DX: Z12.31 Encounter for screening mammogram for malignant neoplasm of breast (principal) | CPT/HCPCS: 77063; 77067 ==